=== PATIENT | male | born 1985 | race Caucasian/White ===

== ENCOUNTER 2023-06-09 14:37 | Emergency (ER) | payer OTHER | END 2023-06-09 15:30 | disposition home or self-care (01) | LOC: MW.ED 14:37 | DX: S60.032A Contusion of left middle finger without damage to nail, initial encounter (principal); W23.0XXA Caught, crushed, jammed, or pinched between moving objects, initial encounter | CPT/HCPCS: 11740; 73140-26-F2; 73140-F2; 99282; 99283 ==